=== PATIENT | male | born 2000 | race Hispanic/Latino ===

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

== ENCOUNTER 2022-05-27 14:48 | Emergency (ER) | payer MEDICAID ==
[~2022-05-27] VITALS: Ht 180.3 cm; Wt 88.5 kg
[2022-05-27 14:52] VITALS: BP 143/75
[2022-05-27] MEDS ORDERED: KETOROLAC 60 MG VIAL (30MG/ML) IM ONE (17:30)
[2022-05-27] MEDS ORDERED: PSEU120T62 PO (17:57)
[2022-05-27] MEDS ORDERED: PHEN118L19 PO (17:57)
[2022-05-27] MEDS ORDERED: IBUP-2070 PO (17:57)
[2022-05-27] MEDS ORDERED: AMOX-426 PO (17:57)
== END 2022-05-27 18:17 | disposition home or self-care (01) ==
LOC: EDH 14:48
DX: J20.9 Acute bronchitis, unspecified (principal); J01.90 Acute sinusitis, unspecified; K52.9 Noninfective gastroenteritis and colitis, unspecified; Z79.1 Long term (current) use of non-steroidal anti-inflammatories (NSAID); Z20.822 Contact with and (suspected) exposure to COVID-19
CPT/HCPCS: 99283; 87635; 87804 ×2; 96372; C9803; J1885